=== PATIENT | male | born 1935 | race Caucasian/White ===

== ENCOUNTER 2018-03-24 14:50 | Inpatient (IN) ==
[2018-03-24 15:00] VITALS: O2SAT 96
--- NOTE | 2018-03-24 15:31 | ED ---
HPI General Chief complaint: [employer] Sewer Problem Stated complaint: Medical Time Seen by Provider: 03/24/18 15:08 Source: patient and family Mode of arrival: ambulatory Limitations: no limitations History of Present Illness HPI narrative: This is an 83-year-old man presents to the emergency department complaining that his AICD is beeping. Patient just had the AICD/pacer battery pack replaced March 10, approximately 2 weeks ago, with Dr. Moraless. Patient had been doing well. He did fall yesterday onto his left arm. Yesterday evening noticed that the pacemaker was beeping every 4 hours and so came to the emergency department. Patient has no complaints. There is no aggravating or alleviating factors. Related Data Home Medications Medication Instructions Recorded Confirmed aspirin [Aspir-81] 81 mg PO DAILY 03/10/18 03/24/18 carbidopa-levodopa 1 tab PO QID 03/10/18 03/24/18 metoprolol tartrate 25 mg PO BID 03/10/18 03/24/18 rivastigmine 1 patch TRANSDERMAL DAILY 03/10/18 03/24/18 simvastatin 20 mg PO HS 03/10/18 03/24/18 Allergies Allergy/AdvReac Type Severity Reaction Status Date / Time No Known Allergies Uncoded 10/22/10 16:46 Review of Systems ROS Unobtainable All other systems reviewed negative except as stated in HPI PMFSH History History Provided By: Patient and Family Member Medical History Medical History Afib (Acute) Colitis (Acute) 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 SKIN: Focused skin assessment warm/dry. HEAD: Atraumatic. Normocephalic. EYES: Pupils equal and round. No scleral icterus. No injection or drainage. ENT: No nasal bleeding or discharge. Mucous membranes pink and moist. NECK: Trachea midline. No JVD. CARDIOVASCULAR: Regular rate and rhythm. No murmur appreciated. On the left side of the chest is pacer pocket, Steri-Strips across the incision, well-healed , little bit of fullness in the pacer pocket may suggest some hematoma or fluid. No tenderness. RESPIRATORY: No accessory muscle use. Clear to auscultation. Breath sounds equal bilaterally. GASTROINTESTINAL: Abdomen soft, non-tender, nondistended. Hepatic and splenic margins not palpable. MUSCULOSKELETAL: No obvious deformities. No clubbing. No cyanosis. No edema. NEUROLOGICAL: Awake and alert. No obvious cranial nerve deficits. Motor grossly within normal limits. Normal speech. PSYCHIATRIC: Appropriate mood and affect; insight and judgment normal. Course Initial Documented Vital Signs Temperature 98.3 F 03/24/18 14:56 Pulse Rate 96 H 03/24/18 14:56 Respiratory Rate 20 03/24/18 14:56 Blood Pressure 121/58 L 03/24/18 14:56 Pulse Oximetry 96 03/24/18 14:56 Last Documented Vital Signs Temperature 98 F 03/24/18 19:01 Pulse Rate 69 03/24/18 19:01 Respiratory Rate 14 03/24/18 19:01 Blood Pressure 135/62 03/24/18 19:01 Pulse Oximetry 96 03/24/18 14:56 Medical Decision Making [facility] Narrative Medical decision making narrative: 83-year-old man, recent pacemaker battery change, fall yesterday, now beeping from the pacemaker site. Concern for malfunction. Will check x-ray, EKG, discuss with cardiology, likely interrogation. FINAL: Patient with fractured lead. Discussed with cardiology. Plan for admission. Lab Data Result diagrams: 03/24/18 16:15 03/24/18 16:15 Lab Results 03/24/18 03/24/18 Range/Units 16:15 16:15 WBC 10.0 (4.0-11.0) th/mm3 RBC 4.38 L (4.50-5.90) mil/mm3 Hgb 14.0 (13.0-17.0) gm/dL Hct 41.6 (39.0-51.0) % MCV 94.9 (80.0-100.0) fL MCH 31.9 (27.0-34.0) pg MCHC 33.6 (32.0-36.0) % RDW 13.4 (11.6-17.2) % Plt Count 177 (150-450) th/mm3 MPV 9.9 (7.0-11.0) fL Neut % (Auto) 79.5 H (16.0-70.0) % Lymph % (Auto) 12.8 (9.0-44.0) % Bent % (Auto) 5.6 (0.0-8.0) % Eos % (Auto) 0.9 (0.0-4.0) % Baso % (Auto) 1.2 (0.0-2.0) % Neut # (Auto) 7.9 H (1.8-7.7) th/mm3 Lymph # (Auto) 1.3 (1.0-4.8) th/mm3 Bent # (Auto) 0.6 (0.0-0.9) th/mm3 Eos # (Auto) 0.1 (0.0-0.4) th/mm3 Baso # (Auto) 0.1 (0.0-0.2) th/mm3 WBC Differential . Differential Comment Auto diff final Sodium 142 (136-145) meq/L Potassium 4.4 (3.5-5.1) meq/L Chloride 110 H (98-107) meq/L Carbon Dioxide 24.8 (21.0-32.0) meq/L Anion Gap 7 (5-15) meq/L BUN 20 H (7-18) mg/dL Creatinine 1.00 (0.60-1.30) mg/dL Estimated GFR 71 L (>89) mL/min Random Glucose 96 (74-106) mg/dL Calcium 9.0 (8.5-10.1) mg/dL Magnesium 1.6 (1.5-2.5) mg/dL Imaging Data Radiologist's impression: Chest X-Ray 03/24/18 15:20 CONCLUSION: 1. Mild left lower lobe airspace disease and volume loss, likely atelectasis. 2. AICD leads appear grossly intact. ECG Data Attestation: I personally reviewed and interpreted this ECG as follows: Interpretation: Review of EKG: Normal sinus rhythm at a rate inferior Q waves, no definite evidence of acute ischemia. Discharge Plan Discharge Disposition Patient Disposition: 30 Still Patient Physicians Team ED Provider: Satya Mabry Primary Care Provider: Aislinn Barrios Attending Provider: Kacy Elizondo Status ED Status: Admitted Observation Patient
--- NOTE | 2018-03-24 15:58 | XR ---
EXAM DATE: 03/24/2018 3:52 PM EDT AGE/SEX: 83 years / Male INDICATIONS: Pacemaker keep going off, fell last night. CLINICAL DATA: This is the patient's initial encounter. Patient reports that signs and symptoms have been present for 1 day and indicates a pain score of 0/10. MEDICAL/SURGICAL HISTORY: None. . pacemaker replaced 03-10-18 COMPARISON: [facility] [place], CHEST PA & LAT, 10/15/2010. . FINDINGS: Dual-lead AICD device in stable position. Mild elevation of the left hemidiaphragm with mild left bas ilar airspace disease. Cardiomediastinal contours are stable. Remainder of the exam is unchanged. CONCLUSION: 1. Mild left lower lobe airspace disease and volume loss, likely atelectasis. 2. AICD leads appear grossly intact. Electronically signed by: Crow Carvalho MD 03/24/2018 3:57 PM EDT
[2018-03-24 17:01] LABS: Carbon Dioxide 24.8 meq/L (21.0-32.0); Magnesium 1.6 mg/dL (1.5-2.5)
[2018-03-24 17:03] LABS: Potassium 4.4 meq/L (3.5-5.1)
[2018-03-24 17:21] LABS: Baso # (Auto) 0.1 th/mm3 (0.0-0.2); Baso % (Auto) 1.2 % (0.0-2.0); Eos # (Auto) 0.1 th/mm3 (0.0-0.4); Eos % (Auto) 0.9 % (0.0-4.0); Hematocrit 41.6 % (39.0-51.0); Lymph # (Auto) 1.3 th/mm3 (1.0-4.8); Lymph % (Auto) 12.8 % (9.0-44.0); Mean Corpuscular HGB Conc 33.6 % (32.0-36.0); Mean Corpuscular Hemoglobin 31.9 pg (27.0-34.0); Mean Corpuscular Volume 94.9 fL (80.0-100.0); Mean Platelet Volume 9.9 fL (7.0-11.0); Mono # (Auto) 0.6 th/mm3 (0.0-0.9); Mono % (Auto) 5.6 % (0.0-8.0); Neut # (Auto) 7.9 th/mm3 (1.8-7.7); Neut % (Auto) 79.5 % (16.0-70.0); Platelet Count 177 th/mm3 (150-450); Red Blood Count 4.38 mil/mm3 (4.50-5.90); Red Cell Distribution Width 13.4 % (11.6-17.2)
[2018-03-24] MEDS ORDERED: Temazepam 15 MG Capsule PO PRN (19:01)
[2018-03-24] MEDS ORDERED: Bisacodyl 10 MG Supp RECTAL PRN (19:01)
[2018-03-24] MEDS ORDERED: Mupirocin 2% Nasal Oint Topical Syringe EACH NARE SCH (19:15)
[2018-03-24] MEDS ORDERED: Chlorhexidine Gluconate 2% 1 Pack (2 Cloths) TOPICAL SCH (19:15)
[2018-03-24 19:41] VITALS: BP 135/62; PULSE 69; RESP 14; TEMP 98
[2018-03-24] MEDS ORDERED: Senna/Docusate Sodium 8.6/50 MG Tablet PO SCH (21:00)
[2018-03-25] MEDS ORDERED: Sodium Chloride 0.45 % Inj 1,000 ML IV.CONT SCH (08:00)
--- NOTE | 2018-03-25 16:40 | ECG ---
Date Performed: 03/24/2018 Time Performed: 15:12:25 PTAGE: 83 years EKG: Sinus rhythm LEFT VENTRICULAR HYPERTROPHY AND ST-T CHANGE INFERIOR MYOCARDIAL INFARCTION, age indeterminate Anter ior Infarct, age indeterminate ABNORMAL ECG PREVIOUS TRACING :03/10/2018 @12.08 Since the previous tracing, no significant change noted DOCTOR: Nilton Robles Interpretating Date/Time 03/25/2018 16:39:57
== END 2018-03-24 20:28 | disposition home or self-care (01) ==
LOC: NEDA 14:50 → NEPE 14:50 → OBSVTOIN 19:00 → NEDA 20:27
PROVIDERS: ADMIT Hospitalist; ATTEND Hospitalist